=== PATIENT | male | born 1945 | race Two or more races ===

== ENCOUNTER 2023-12-29 15:56 | Inpatient (IN) | payer OTHER ==
[~2023-12-29] VITALS: Ht 182.9 cm; Wt 59.0 kg
[~2023-12-29 15:56] MED LIST: LABETALOL HCL100 MG PO
[2023-12-29] MEDS ORDERED: LASIX20 MG PO (17:24)
[2023-12-29] MEDS ORDERED: ELIQUIS5 MG PO (17:24)
[2023-12-29] MEDS ORDERED: TOPROL XL100 M1 PO (17:24)
[2023-12-29] MEDS ORDERED: LIPITOR40 M1 PO (17:24)
[2023-12-29] MEDS ORDERED: 0.9 % SODIUM CHLORIDE 1,000 ML IV SCH ×2 (20:00→21:30)
[2023-12-29] MEDS ORDERED: MORPHINE SULFATE 4 MG/ML VIAL IV ONE (20:00)
[2023-12-29 20:45] LABS: HEMATOCRIT 39.9 % (39.0-48.0); HEMOGLOBIN 13.2 g/dL (13-16.00); MEAN CELL VOLUME 72.9 fL (80.0-100.00); MEAN CORPUSCULAR HEMOGLOBIN 24.1 pg (27.00-32.0); PLATELET COUNT 224 K/uL (150-450); RED BLOOD COUNT 5.47 M/uL (4.00-6.00)
[2023-12-29 20:46] LABS: RED CELL DISTRIBUTION WIDTH 17.7 % (11.5-14.5)
[2023-12-29 21:02] LABS: INR 1.28; PARTIAL THROMBOPLASTIN TIME 34.2 SECONDS (22.0-34.0); PROTHROMBIN TIME 13.2 SECONDS (9.0-11.5)
[2023-12-29 21:06] LABS: ALBUMIN 2.8 gm/dL (3.4-5.0); BILIRUBIN TOTAL 1.64 mg/dL (0.3-1.2); CREATININE SERUM 1.36 mg/dL (0.70-1.30); GFR 50.68; GLOBULINA 5.9 G/DL (2.4-3.5); POTASSIUM 4.68 mEq/L (3.5-5.1); TOTAL PROTEIN 8.7 gm/dL (6.4-8.2)
[2023-12-29] MEDS ORDERED: OxyCODONE HCL/APAP UD (PERCOCET) PO PRN (21:30)
[2023-12-29] MEDS ORDERED: ACETAMINOPHEN 500 MG GEL..CAP PO PRN (21:30)
[2023-12-29] MEDS ORDERED: ONDANSETRON HCL 4 MG in 0.9 % SODIUM CHLORIDE 50 ML IV PRN (21:30)
[2023-12-30 08:04] LABS: TSH 5.71 uIU/mL (0.358-3.74)
[2023-12-30] MEDS ORDERED: FAMOTIDINE/PF 20 MG in 0.9 % SODIUM CHLORIDE 8 ML IV PUSH SCH (09:00)
[2023-12-30] MEDS ORDERED: METOPROLOL SUCCINATE 100 MG TAB.SR.24H PO SCH (09:00)
[2023-12-30] MEDS ORDERED: ATORVASTATIN CALCIUM 40 MG TABLET PO SCH (09:00)
[2023-12-30] MEDS ORDERED: APIXABAN 5 MG TABLET PO SCH (17:00)
[2023-12-31 10:18] LABS: HEMATOCRIT 36.9 % (39.0-48.0); MEAN CELL VOLUME 73.7 fL (80.0-100.00); MEAN CORPUSCULAR HEMOGLOBIN 24.1 pg (27.00-32.0); MEAN CORPUSCULAR HGB CONC 32.6 g/dl (32.0-36.0); PLATELET COUNT 211 K/uL (150-450); RED BLOOD COUNT 5.01 M/uL (4.00-6.00); RED CELL DISTRIBUTION WIDTH 17.8 % (11.5-14.5)
[2023-12-31 11:45] LABS: PH,URINE 6.5 (5.0-8.0); URINE APPEARANCE Clear; URINE BILIRRUBIN Negative (NEGATIVE); URINE BLOOD Large; URINE COLOR Dark Yellow; URINE GLUCOSE Negative (NEGATIVE); URINE LEUKOCYTE Negative; URINE NITRATE Negative; URINE PROTEIN Negative (NEGATIVE)
[2023-12-31 11:49] LABS: URINE BACTERIA 307.3 uL (0.0-1933); URINE EPITHELIAL CELLS 5.8 uL (0.0-38.8); URINE RBC 1484.7 uL (0.0-20.8); URINE WBC 5.4 uL (0.0-23.2)
[2024-01-01 22:48] LABS: COL EPI 104 SECONDS (82-175)
[2024-01-02] MEDS ORDERED: VANCOMYCIN HCL 1,000 MG VIAL ONE (08:42)
[2024-01-02] MEDS ORDERED: TRANEXAMIC ACID 100MG/1ML (1000MG) AMPUL IV ONE ×2 (08:42→10:00)
[2024-01-02] MEDS ORDERED: ISOPROPYL ALCOHOL 30 ML OUNCE TOP ONE ×2 (08:43→10:15)
[2024-01-02 08:59] LABS: CREATININE SERUM 1.09 mg/dL (0.70-1.30); GFR 65.42; PHOSPHOROUS 4.1 mg/dL (2.5-4.9); POTASSIUM 4.56 mEq/L (3.5-5.1)
[2024-01-02] MEDS ORDERED: VANCOMYCIN HCL 1,000 MG VIAL IV ONE (10:15)
[2024-01-02] MEDS ORDERED: TRANEXAMIC ACID 100MG/1ML (1000MG) AMPUL IV NR (10:15)
[2024-01-02] MEDS ORDERED: VANCOMYCIN HCL 1,000 MG VIAL IR ONE (10:15)
[2024-01-02] MEDS ORDERED: SODIUM CHLORIDE 0.45 % 1,000 ML IV SCH (10:30)
[2024-01-02] MEDS ORDERED: MEPERIDINE HCL/PF 50 MG/ML VIAL IM PRN (10:30)
[2024-01-02] MEDS ORDERED: ONDANSETRON HCL 2 MG/ML VIAL IV PRN (10:30)
[2024-01-02] MEDS ORDERED: ONDANSETRON 4 MG TAB.RAPDIS PO PRN (10:30)
[2024-01-02] MEDS ORDERED: TRAMADOL HCL 50 MG TABLET PO PRN (10:30)
[2024-01-02] MEDS ORDERED: PANTOPRAZOLE SODIUM 40 MG TABLET.DR PO SCH (12:00)
[2024-01-02] MEDS ORDERED: PROMETHAZINE HCL 50 MG/ML AMPUL IM PRN (13:00)
[2024-01-02] MEDS ORDERED: CEFAZOLIN SODIUM 1,000 MG VIAL IV SCH (13:00)
[2024-01-03 10:37] LABS: HEMATOCRIT 33.4 % (39.0-48.0); HEMOGLOBIN 10.9 g/dL (13-16.00); MEAN CELL VOLUME 72.2 fL (80.0-100.00); MEAN CORPUSCULAR HEMOGLOBIN 23.5 pg (27.00-32.0); MEAN CORPUSCULAR HGB CONC 32.6 g/dl (32.0-36.0); PLATELET COUNT 194 K/uL (150-450); RED BLOOD COUNT 4.63 M/uL (4.00-6.00); RED CELL DISTRIBUTION WIDTH 17.6 % (11.5-14.5)
[2024-01-03 10:40] LABS: COL EPI 120 SECONDS (82-175)
[2024-01-03 10:48] LABS: INR 1.26
[2024-01-04] MEDS ORDERED: SENNA/DOCUSATE SODIUM 1 TAB TABLET PO SCH (09:00)
== END 2024-01-04 12:57 | DRG 481 ==
LOC: ER 15:57 → SURH 21:43
PROVIDERS: General Practice; Internal Medicine; Internal Medicine Nephrology; Orthopaedic Surgery; ADMIT Internal Medicine; ATTEND Internal Medicine
PROC: BQ21ZZZ Computerized Tomography (CT Scan) of Left Hip (ICD-10-PCS; 2023-12-29)
PROC: B24BZZZ Ultrasonography of Heart with Aorta (ICD-10-PCS; 2023-12-29)
PROC: 0QS704Z Reposition Left Upper Femur with Internal Fixation Device, Open Approach (ICD-10-PCS; principal; 2024-01-02 07:00)
DX: S72.145A Nondisplaced intertrochanteric fracture of left femur, initial encounter for closed fracture (principal); I13.0 Hypertensive heart and chronic kidney disease with heart failure and stage 1 through stage 4 chronic kidney disease, or unspecified chronic kidney disease; N17.9 Acute kidney failure, unspecified; I50.30 Unspecified diastolic (congestive) heart failure; I48.91 Unspecified atrial fibrillation; E78.5 Hyperlipidemia, unspecified; N18.9 Chronic kidney disease, unspecified; W13.3XXA Fall through floor, initial encounter; Y93.9 Activity, unspecified; Y92.003 Bedroom of unspecified non-institutional (private) residence as the place of occurrence of the external cause

== ENCOUNTER 2024-04-19 08:45 | Outpatient (CLI) | payer OTHER ==
[~2024-04-19 08:45] MED LIST changes: +ELIQUIS5 MG PO; +LASIX20 MG PO; +LIPITOR40 M1 PO; +TOPROL XL100 M1 PO
== END 2024-04-19 08:49 | disposition home or self-care (01) ==
LOC: RAD 08:45
PROVIDERS: ATTEND Orthopaedic Surgery
DX: S72.142D Displaced intertrochanteric fracture of left femur, subsequent encounter for closed fracture with routine healing (principal)

== ENCOUNTER 2024-05-11 13:41 | Outpatient (CLI) | payer OTHER | END 2024-05-11 13:43 | disposition home or self-care (01) | LOC: NUCLEAR 13:41 | PROVIDERS: ATTEND Orthopaedic Surgery | DX: M81.0 Age-related osteoporosis without current pathological fracture (principal) ==

== ENCOUNTER 2025-02-20 15:17 | Outpatient (CLI) | payer OTHER | END 2025-02-20 15:18 | disposition home or self-care (01) | LOC: RAD 15:17 | PROVIDERS: ATTEND Internal Medicine | DX: R07.89 Other chest pain (principal) ==